=== PATIENT | female | born 1980 | race Caucasian/White ===

== ENCOUNTER 2018-02-18 06:46 | Emergency (ER) | payer MEDICAID ==
[~2018-02-18] VITALS: Ht 160 cm; Wt 88.4 kg
[~2018-02-18 06:46] MED LIST: PREN-88 PO
[2018-02-18 10:55] VITALS: BP 121/82
== END 2018-02-18 10:57 | disposition home or self-care (01) ==
LOC: ER 08:32
DX: J06.9 Acute upper respiratory infection, unspecified (principal); Z98.890 Other specified postprocedural states
CPT/HCPCS: 71045; 81025; 93005; 99283